=== PATIENT | male | born 1970 | race Caucasian/White ===

== ENCOUNTER 2016-06-02 13:00 | Inpatient (IN) | payer OTHER ==
[~2016-06-02] VITALS: Ht 182.9 cm; Wt 75.5 kg
[2016-06-02 13:22] LABS: EOSINOPHIL (%) 0.3 % (0-5); EOSINOPHIL COUNT 0.1 K/uL (0-0.3); IMMATURE GRANULOCYTE (%) 0.5 % (0.0-0.7); IMMATURE GRANULOCYTE COUNT 0.8 K/uL; LYMPHOCYTE COUNT 3.2 K/uL (1.0-2.8); MCH 33.9 PG (29.0-34.0); MCHC 35.2 G/DL (30.0-36.0); MCV 96.3 FL (86-99); MEAN PLAT.VOLUME 9.7 uM^3 (9.0-12.4); MONOCYTE (%) 4.8 % (3-12); MONOCYTE COUNT 0.8 K/uL (0-0.8); NEUTROPHIL (%) 75.8 % (45-76); NEUTROPHIL COUNT 13.3 K/uL (1.8-6.4); PLATELET COUNT 233 K/uL (156-360); RBC DIS.WIDTH-CV 13.1 % (11.8-14.6); RBC DIS.WIDTH-SD 45.8 % (39-53); WHITE BLOOD COUNT 17.5 K/uL (4.1-10.2)
[2016-06-02 13:38] LABS: AMYLASE 52 IU/L (1-118); CHLORIDE 104 mEq/L (99-109); POTASSIUM 4.1 mEq/L (3.7-5.4); SODIUM 141 mEq/L (136-147)
[2016-06-02 13:39] LABS: GLUCOSE 108 mg/dL (70-99)
[2016-06-02 13:41] LABS: ANION GAP 14 MEQ/L (2-14)
[2016-06-02 13:43] LABS: SERUM ETHYL ALCOHOL 56 mg/dL
[2016-06-02 13:44] LABS: UREA NITROGEN (BUN) 5 mg/dL (9-23)
[2016-06-02 13:45] LABS: GFR ESTIMATE (CALCULATED) > 59 mL/min/
[2016-06-02 13:46] LABS: LIPASE 45 U/L (1.0-51.0)
[2016-06-02 17:07] LABS: ADD MIUA? YES; BILIRUBIN NEGATIVE; BLOOD TRACE; COLOR YELLOW ((YELLOW)); GLUCOSE (STRIP) NEGATIVE; KETONES 40; LEUKOCYTES NEGATIVE; NITRITE NEGATIVE; PROTEIN (STRIP) TRACE; UROBILINOGEN 0.2 MG/DL (0.2-1.0)
[2016-06-02 17:17] LABS: ADD MEDTOX COMMENT Y; AMPHETAMINE NEGATIVE (500 ng/mL); BARBITURATES NEGATIVE (200 ng/mL); BENZODIAZEPINES PRESUMPTIVE POSITIVE (150 ng/mL); COCAINE NEGATIVE (150 ng/mL); INTERNAL CONTROLS VALID? YES; METHADONE NEGATIVE (200 ng/mL); METHAMPHETAMINE NEGATIVE (500 ng/mL); OPIATES (MORPHINE) NEGATIVE (100 ng/mL); OXYCODONE NEGATIVE (100 ng/mL); PHENCYCLIDINE NEGATIVE (25 ng/mL); PROPOXYPHENE NEGATIVE (300 ng/mL); THC CANNABINOIDS NEGATIVE (50 ng/mL); TRICYCLIC ANTIDEPRESSANTS NEGATIVE (300 ng/mL)
[2016-06-02 17:22] LABS: BACTERIA NONE SEEN; CASTS NONE SEEN /LPF; CRYSTALS NONE SEEN; EPITHELIAL CELLS RARE; MUCUS NONE SEEN; PATHOLOGICAL CAST NONE SEEN; RED BLOOD CELLS 0-5 /HPF (0-5); SMALL ROUND CELL NONE SEEN; SPECIFIC GRAVITY 1.062 (1.000-1.030); UCUL ADDED? NO; WHITE BLOOD CELLS 0-5 /HPF (0-5); YEAST-LIKE CELL NONE SEEN
[2016-06-02 17:51] LABS: BENZODIAZEPINES QUANT VALUE 0 NG/ML
[2016-06-02 18:02] LABS: BENZODIAZEPINES, URINE SCREEN Negative (200 ng/mL)
[2016-06-02 20:13] VITALS: BP 131/83
[2016-06-02 20:15] VITALS: BP 131/83
[2016-06-02 21:00] VITALS: BP 143/84
[2016-06-02 22:00] VITALS: BP 130/85
[2016-06-02 22:11] LABS: METH RESISTANT S AUREUS PCR NEGATIVE (NEGATIVE)
[2016-06-02 22:19] LABS: PROBE CHECK PASS; SPECIMEN PROCESSING CONTROL PASS
[2016-06-02 23:00] VITALS: BP 124/82
[2016-06-03] VITALS (14 sets, daily range): BP systolic 117–158; BP diastolic 75–99
[2016-06-03 05:57] LABS: ALKALINE PHOSPHATASE 55 IU/L (3-129); ANION GAP 10 MEQ/L (2-14); CHLORIDE 101 MEQ/L (99-109); GFR ESTIMATE (CALCULATED) > 59 mL/min/; GLUCOSE 116 mg/dL (70-99); POTASSIUM 3.7 MEQ/L (3.7-5.4); SAMPLE HEMOLYSIS CHECK 0; SAMPLE ICTERIC CHECK 0; SAMPLE LIPEMIA CHECK 0; SODIUM 135 MEQ/L (136-147); TOTAL BILIRUBIN 1.4 MG/DL (0.0-1.0); UREA NITROGEN (BUN) 4 mg/dL (9-23)
[2016-06-03 06:23] LABS: HEMATOLOGY COMMENT 1 SMEAR COMPATIBLE; MCH 33.5 PG (29.0-34.0); MCHC 33.6 G/DL (30.0-36.0); MCV 99.5 FL (86-99); MEAN PLAT.VOLUME 10.7 uM^3 (9.0-12.4); PLATELET COUNT 148 K/uL (156-360); RBC DIS.WIDTH-CV 13.1 % (11.8-14.6); RBC DIS.WIDTH-SD 47.7 % (39-53); RED BLOOD COUNT 4.42 M/uL (4.00-5.50)
[2016-06-04] VITALS (15 sets, daily range): BP systolic 112–144; BP diastolic 57–89
[2016-06-05] VITALS (11 sets, daily range): BP systolic 100–122; BP diastolic 59–80
[2016-06-05 06:11] LABS: ALKALINE PHOSPHATASE 42 IU/L (3-129); ANION GAP 9 MEQ/L (2-14); CHLORIDE 101 MEQ/L (99-109); GFR ESTIMATE (CALCULATED) > 59 mL/min/; GLUCOSE 108 mg/dL (70-99); POTASSIUM 3.7 MEQ/L (3.7-5.4); SAMPLE HEMOLYSIS CHECK 0; SAMPLE ICTERIC CHECK 0; SAMPLE LIPEMIA CHECK 0; SODIUM 135 MEQ/L (136-147); UREA NITROGEN (BUN) 6 mg/dL (9-23)
[2016-06-05 06:24] LABS: TOTAL BILIRUBIN 1.1 MG/DL (0.0-1.0)
[2016-06-05 06:50] LABS: MCH 32.6 PG (29.0-34.0); MCHC 32.9 G/DL (30.0-36.0); MEAN PLAT.VOLUME 10.7 uM^3 (9.0-12.4); PLATELET COUNT 127 K/uL (156-360); RBC DIS.WIDTH-SD 46.8 % (39-53); RED BLOOD COUNT 3.84 M/uL (4.00-5.50); WHITE BLOOD COUNT 9.3 K/uL (4.1-10.2)
[2016-06-06] VITALS (9 sets, daily range): BP systolic 95–129; BP diastolic 59–91
[2016-06-07] VITALS (8 sets, daily range): BP systolic 109–145; BP diastolic 66–94
[2016-06-08] VITALS (7 sets, daily range): BP systolic 117–136; BP diastolic 81–90
[2016-06-08] MEDS ORDERED: LORCET 5-325 M1 EACH PO (14:40)
[2016-06-09 04:40] VITALS: BP 119/84
[2016-06-09 08:47] VITALS: BP 127/83
[2016-06-09 17:22] VITALS: BP 123/85
[2016-06-09 23:19] VITALS: BP 143/92
[2016-06-10 07:40] VITALS: BP 138/84
[2016-06-10 16:07] VITALS: BP 135/83
[2016-06-10 23:26] VITALS: BP 144/93
[2016-06-11 08:15] VITALS: BP 147/92
[2016-06-11 15:32] VITALS: BP 136/89
[2016-06-11 23:45] VITALS: BP 136/93
[2016-06-12 08:36] VITALS: BP 132/90
[2016-06-12 17:34] VITALS: BP 133/87
[2016-06-12 23:41] VITALS: BP 139/87
[2016-06-13 08:19] VITALS: BP 126/86
[2016-06-13 12:10] VITALS: BP 122/80
[2016-06-13 16:52] VITALS: BP 130/87
[2016-06-13 19:44] VITALS: BP 144/88
[2016-06-13 23:59] VITALS: BP 130/87
[2016-06-14 08:00] VITALS: BP 142/76
[2016-06-14 12:00] VITALS: BP 127/97
== END 2016-06-14 13:21 | disposition home or self-care (01) | DRG 460 ==
LOC: TRA 13:00 → 3EAST 16:48 → 4WEST 16:48 → EDOF 16:48 → 3EAST 16:48 → EDOF 16:48 → 4WEST 19:52 → 3EAST 06-07 17:38
PROVIDERS: Emergency Medicine; Surgery
DX: S22.018A Other fracture of first thoracic vertebra, initial encounter for closed fracture (principal); S22.41XA Multiple fractures of ribs, right side, initial encounter for closed fracture; S12.600A Unspecified displaced fracture of seventh cervical vertebra, initial encounter for closed fracture; F10.239 Alcohol dependence with withdrawal, unspecified; S22.32XA Fracture of one rib, left side, initial encounter for closed fracture; S22.029A Unspecified fracture of second thoracic vertebra, initial encounter for closed fracture; S22.039A Unspecified fracture of third thoracic vertebra, initial encounter for closed fracture; S42.101A Fracture of unspecified part of scapula, right shoulder, initial encounter for closed fracture; S42.001A Fracture of unspecified part of right clavicle, initial encounter for closed fracture; V48.6XXA Car passenger injured in noncollision transport accident in traffic accident, initial encounter; F10.220 Alcohol dependence with intoxication, uncomplicated; S06.9X9S Unspecified intracranial injury with loss of consciousness of unspecified duration, sequela; Y90.2 Blood alcohol level of 40-59 mg/100 ml; R40.2412 Glasgow coma scale score 13-15, at arrival to emergency department; S01.112A Laceration without foreign body of left eyelid and periocular area, initial encounter; F17.210 Nicotine dependence, cigarettes, uncomplicated; Y92.410 Unspecified street and highway as the place of occurrence of the external cause
CPT/HCPCS: 70450; 70486; 71010; 71260; 72020; 72040; 72070; 72125; 72129; 72132; 73000; 73010; 73200; 74177; 76000; 80048; 80053; 81003; 82150; 83690; 83735; 84999; 85025; 85027; 86850; 86900; 86901; 87641; 94760; 94799; 97530 GO; 97530 GP; 99281; 99285; C1713; C1768; C9113; G0480; J0690; J1100; J1580; J1650; J2060; J2250; J2405; J2710; J2930; J3010; J3370; J7120; S0020